=== PATIENT | female | born 1950 | race Caucasian/White ===

== ENCOUNTER → 2023-07-13 09:24 | Outpatient (REF) | payer MEDICARE, OTHER, SELFPAY ==
[2023-07-13 10:19] LABS: Urine Albumin Negative (Neg - Trace); Urine Bilirubin 1+ (Negative); Urine Character Clear (Clear); Urine Color Yellow; Urine Glucose Negative (Negative); Urine Ketone Negative (Negative); Urine Leukocyte 2+ (Negative); Urine Nitrite Negative (Negative); Urine Occult Blood Negative (Negative); Urine Specific Gravity 1.015 (<1.030); Urine Urobilinogen Negative (Neg - 1+)
[2023-07-13 10:28] LABS: Urine Bacteria Few (Negative); Urine Red Blood Cell 0-2 /HPF (0-2)
[2023-07-13 10:50] LABS: ALT (SGPT) 14 U/L (0-35); AST (SGOT) 17 U/L (14-36); Albumin 4.2 g/dl (3.5-5.0); Alkaline Phosphatase 76 U/L (38-126); Blood Urea Nitrogen 13 mg/dl (7-17); Calcium 9.6 mg/dl (8.4-10.2); Carbon Dioxide 24 mmol/L (22-30); Chloride 101 mmol/L (98-107); Glucose 117 mg/dl (70-99); Potassium 4.7 mmol/L (3.5-5.1); Sodium 131 mmol/L (135-145); Total Bilirubin 0.5 mg/dl (0.2-1.3); Total Protein 6.6 g/dl (6.3-8.2); eGFR 53.06
== END ==
LOC: RAD 09:24
PROVIDERS: ATTENDING PHYSICIAN Nurse Practitioner Family
DX: R10.32 Left lower quadrant pain (principal); I10 Essential (primary) hypertension; R10.9 Unspecified abdominal pain; R35.0 Frequency of micturition
CPT/HCPCS: 36415; 74177; 80053; 81003; 81015; 87086; Q9967

== ENCOUNTER → 2023-07-29 10:54 | Outpatient (REF) | payer MEDICARE, OTHER, SELFPAY ==
[2023-07-29 13:16] LABS: Urine Albumin Negative (Neg - Trace); Urine Bilirubin Negative (Negative); Urine Character Clear (Clear); Urine Color Yellow; Urine Glucose Negative (Negative); Urine Ketone Negative (Negative); Urine Leukocyte Negative (Negative); Urine Nitrite Negative (Negative); Urine Occult Blood Negative (Negative); Urine Specific Gravity 1.005 (<1.030); Urine Urobilinogen Negative (Neg - 1+)
== END ==
LOC: REG 10:54
PROVIDERS: ATTENDING PHYSICIAN Nurse Practitioner Family; FAMILY PHYSICIAN Family Medicine
DX: R39.9 Unspecified symptoms and signs involving the genitourinary system (principal)
CPT/HCPCS: 81003; 87086

== ENCOUNTER → 2023-08-15 12:59 | Outpatient (REF) | payer MEDICARE, OTHER, SELFPAY | LOC: PAVMRI 12:59 | PROVIDERS: ATTENDING PHYSICIAN Nurse Practitioner Family; FAMILY PHYSICIAN Family Medicine | DX: K86.2 Cyst of pancreas (principal) | CPT/HCPCS: 74183; A9575 ==

== ENCOUNTER → 2024-03-15 14:31 | Outpatient (REF) | payer MEDICARE, OTHER, SELFPAY | LOC: PAVMRI 14:31 | PROVIDERS: ATTENDING PHYSICIAN Internal Medicine Gastroenterology; FAMILY PHYSICIAN Family Medicine | DX: K86.2 Cyst of pancreas (principal) | CPT/HCPCS: 74183; A9575 ==

== ENCOUNTER 2025-02-20 13:56 | Emergency (ER) | payer MEDICARE, OTHER, SELFPAY ==
[2025-02-20 14:01] VITALS: BP 157/88
[2025-02-20 14:19] LABS: Hematocrit 41.7 % (37.0-47.0); Hemoglobin 14.3 g/dL (12.0-16.0); Mean Corp Hgb Conc. 34.3 g/dL (33.0-37.0); Mean Corpuscular Volume 86.7 fL (81.0-99.0); Nucleated Red Blood Cells % 0 %; Platelet Count 381 10^3/uL (130-400); Red Cell Dist. Width 13.4 % (11.5-14.5)
[2025-02-20 14:32] LABS: ALT (SGPT) 18 U/L (0-35); AST (SGOT) 27 U/L (14-36); Albumin 4.5 g/dl (3.5-5.0); Alkaline Phosphatase 85 U/L (38-126); Blood Urea Nitrogen 23 mg/dl (7-17); Calcium 9.3 mg/dl (8.4-10.2); Carbon Dioxide 30 mmol/L (22-30); Chloride 92 mmol/L (98-107); Glucose 128 mg/dl (70-99); Lipase 73 U/L (23-300); Potassium 3.7 mmol/L (3.5-5.1); Sodium 130 mmol/L (135-145); Total Protein 7.2 g/dl (6.3-8.2); eGFR > 60.00
--- NOTE | 2025-02-20 15:51 | EDRN ---
Katharine Mayen in room w/ pt
--- NOTE | 2025-02-20 16:09 | ED.GENMED ---
History of Present Illness
<Deena Mayen MD, Resident - Last Filed: 02/20/25 20:12>
General
Chief Complaint: Abdominal Symptoms
Source: patient
Exam Limitations: none
Time Seen by Provider: 02/20/25 15:49
Nursing documentation reviewed up to this point in time: agreed with
History of Present Illness
History of Present Illness:
74yo F with a hx of HTN, GERD, recent hiatal hernia repair (~2-3yr prior) who presents with subacute epigastric pain & nausea/vomiting.
Pt reports that for the last 2 days, she's been experiencing substernal/epigastric burning pain with eating and drinking. She has vomited 3-4x at home over the last 2 days and has only been able to tolerate sips of water, which still elicit the
burning pain. Currently rates pain at 7/10. It does not radiate beyond epigastric/substernal area. Vomitus was 'black' color, although she did not eat anything dark. Denies hx of ulcers. Denies frequent NSAID use, only uses occasionally and hasn't
used any in the last 2 days. Tried pepto bismol & tylenol, neither of which helped with pain for >1 hr. She takes famotidine daily for her dx of GERD. Had hiatal hernia repair 2-3 yrs ago. States that this burning pain feels similar to GERD but in a
different location and worse / elicited with small sips of fluid. Did not take temperature at home but endorses chills at home. Denies any sick contacts. Endorses minimal diarrhea, without blood.
Past History
<Deena Mayen MD, Resident - Last Filed: 02/20/25 20:12>
Past History
ED Past Medical History: HTN and Psychiatric (Anxiety)
ED Past Surgical History: Gynecological (Tubal ligation) and Urological (Kidney blockage surgery)
Patient has exhibited threatening behavior?: No
Social History
Tobacco: Non-smoker
Alcohol: Occasional (Rare alcohol use)
Personal:
Living: with family (Daughter)
Employment: Retired
Family History
Family History: Other (Noncontributory)
Review of Systems
<Deena Mayen MD, Resident - Last Filed: 02/20/25 20:12>
Review of Systems
Allergies reviewed?: Yes
All Other Systems: ROS reviewed and negative except as documented in HPI and ROS
Constitutional: Reports chills
EENT: Reports no symptoms
Respiratory: Reports cough
Cardiac: Reports no symptoms
ABD/GI: Reports abdominal pain, nausea, vomiting, diarrhea and pain
: Reports no symptoms
Musculoskeletal: Reports no symptoms
Skin: Reports no symptoms
Neurological: Reports no symptoms
Psychiatric: Reports no symptoms
Phy Exam
<Deena Mayen MD, Resident - Last Filed: 02/20/25 20:12>
General Physical Exam
General Presentation: well appearing
General age: appears stated age
General Skin: warm and dry
General Habitus: normal
General Mental: alert
General Hydration: dry mucous membranes
Cardiovascular Exam
Cardiovascular Exam: regular rate/rhythm, no edema and other (no sternal tenderness to palpation )
Pulmonary Exam
Pulmonary Exam: no respiratory distress
Gastrointestinal Exam
Gastrointestinal Exam: non tender, soft and non distended
Neurological Exam
Neurological Exam: alert
Psychiatric Exam
Psychiatric Exam: normal mood/affect
Course
<Deena Mayen MD, Resident - Last Filed: 02/20/25 20:12>
Orders/Labs/Results
Orders:
Orders
02/20/25 14:03
Electrocardiogram (*1) Urgent
Reason for Study: Abdominal Pain
EKG- Treatment ONCE
02/20/25 14:13
Complete Blood Count/With Diff Urgent
Comprehensive Metabolic Panel Urgent
Lipase Urgent
02/20/25 16:14
0.9% Sodium Chloride 1000 ml [Nss] 1,000 ml IV BOLUS
Pantoprazole [Protonix IV] 40 mg IV NOW STA
02/20/25 16:16
CT Abd/pelvis W Iv Cont Urgent
Comment:
Reason For Exam: substernal/epigastric pain, vomiting
02/20/25 16:17
Ondansetron Orally Disint [Zofran Odt (Orally Disintegrating)] 4 mg PO Q8HPRN PRN
Abnormal Lab Results
02/20/25
14:13
WBC 13.3 H 10^3/uL
(4.8-10.8)
Abs Immat Gran (auto) 0.1 H 10^3/uL
(0-0.05)
Absolute Neuts (auto) 10.7 H 10^3/uL
(1.4-6.5)
Absolute Monos (auto) 1.0 H 10^3/uL
(0.1-0.6)
Neutrophils % 79.9 H %
(42.2-75.2)
Lymphocytes % 11.8 L %
(20.5-51.1)
Sodium 130 L mmol/L
(135-145)
Chloride 92 L mmol/L
(98-107)
BUN 23 H mg/dl
(7-17)
Glucose 128 H mg/dl
(70-99)
02/20/25 14:13
02/20/25 14:13
Vital Signs
Initial and Last Documented VS:
Initial Vital Signs
Temp Pulse Resp BP Pulse Ox
97.6 F 116 19 157/88 98
02/20/25 14:01 02/20/25 14:01 02/20/25 14:01 02/20/25 14:01 02/20/25 14:01
Last Documented Vital Signs
Temp Pulse Resp BP Pulse Ox
97.6 F 90 16 175/87 97
02/20/25 14:01 02/20/25 18:20 02/20/25 18:20 02/20/25 18:20 02/20/25 18:20
<Belle Deng, DO - Last Filed: 02/20/25 20:13>
Orders/Labs/Results
Orders:
Orders
02/20/25 14:03
Electrocardiogram (*1) Urgent
Reason for Study: Abdominal Pain
EKG- Treatment ONCE
02/20/25 14:13
Complete Blood Count/With Diff Urgent
Comprehensive Metabolic Panel Urgent
Lipase Urgent
02/20/25 16:14
0.9% Sodium Chloride 1000 ml [Nss] 1,000 ml IV BOLUS
Pantoprazole [Protonix IV] 40 mg IV NOW STA
02/20/25 16:16
CT Abd/pelvis W Iv Cont Urgent
Comment:
Reason For Exam: substernal/epigastric pain, vomiting
02/20/25 16:17
Ondansetron Orally Disint [Zofran Odt (Orally Disintegrating)] 4 mg PO Q8HPRN PRN
Abnormal Lab Results
02/20/25
14:13
WBC 13.3 H 10^3/uL
(4.8-10.8)
Abs Immat Gran (auto) 0.1 H 10^3/uL
(0-0.05)
Absolute Neuts (auto) 10.7 H 10^3/uL
(1.4-6.5)
Absolute Monos (auto) 1.0 H 10^3/uL
(0.1-0.6)
Neutrophils % 79.9 H %
(42.2-75.2)
Lymphocytes % 11.8 L %
(20.5-51.1)
Sodium 130 L mmol/L
(135-145)
Chloride 92 L mmol/L
(98-107)
BUN 23 H mg/dl
(7-17)
Glucose 128 H mg/dl
(70-99)
02/20/25 14:13
02/20/25 14:13
Vital Signs
Initial and Last Documented VS:
Initial Vital Signs
Temp Pulse Resp BP Pulse Ox
97.6 F 116 19 157/88 98
02/20/25 14:01 02/20/25 14:01 02/20/25 14:01 02/20/25 14:01 02/20/25 14:01
Last Documented Vital Signs
Temp Pulse Resp BP Pulse Ox
97.6 F 90 16 175/87 97
02/20/25 14:01 02/20/25 18:20 02/20/25 18:20 02/20/25 18:20 02/20/25 18:20
<Deena Mayen MD, Resident - Last Filed: 02/20/25 20:12>
MDM/Problems Addressed
Differential Diagnosis Includes:
DDx: esophagitis vs. gastric/peptic ulcer
Less likely:
Infectious gastritis (afebrile, no sick contacts, no abnormal food preceding, WBC mildly elevated)
Hiatal hernia repair complication
ACS (r/o with EKG, quality of pain, incidence w PO intake, vomiting)
MDM/Problems Addressed:
Plan:
1L NSS
40mg IV pantoprazole
CT a/p w IV contrast
Zofran PRN
CBC/CMP
EKG
Chronic conditions affecting care: Other (GERD)
Acute Exacerbation and/or Progression of Chronic Illness:
Pt with underlying GERD, takes famotidine at baseline
<Deena Mayen MD, Resident - Last Filed: 02/20/25 20:12>
*Pulse Oximetry
SaO2: 98
Oxygen Mode of Delivery: Room air
Patient hypoxic: no
*EKG
Interpreted by ED Provider?: Yes
EKG Intrepretation Date: 02/20/25
Interpretation: normal
Comparison EKG: no comparison EKG present
Rate: normal
Rhythm: sinus
[place]: normal axis
Interval: long QT (476 )
QRS Pattern: normal QRS
Ischemia: no ischemia
*Critical Care Note
Total Time (30-74mins, 75-104mins- exclusive of procedures): Not Applicable
Data Reviewed
Review of Other/Old Records Reveals: Labs and Radiology Studies
<Belle Vilchis DO - Last Filed: 02/20/25 20:13>
*Pulse Oximetry
Patient hypoxic: no
*Critical Care Note
Total Time (30-74mins, 75-104mins- exclusive of procedures): Not Applicable
<Deena Mayen MD, Resident - Last Filed: 02/20/25 20:12>
Update Note
Update Note:
CT a/p without acute abnormality; new gallstone & known hiatal hernia noted.
Pt reports feeling better holistically s/p NSS, but still with some nausea. Trialed a sip of water, she said it felt good to drink but still caused the burning sensation.
Pt clarified that she stopped taking the famotidine a few months ago because she had been feeling fine.
Feels comfortable going home.
ED Attending Note
<Deena Mayen MD, Resident - Last Filed: 02/20/25 20:12>
-
Portions of this chart may have been created with voice recognition software.� Occasional wrong word or��sound alike� substitutions may have occurred due to the inherent limitations of voice recognition software.
<Belle Vilchis DO - Last Filed: 02/20/25 20:13>
ED Attending Note
Patient seen and examined by attending physician: Yes
I performed the substantive portion of visit, reviewed & personally made and approve the management plan that is documented in note by myself or ANN.: Yes
I performed a history and physical exam of patient and discussed management with resident, I reviewed resident's note and agree with documented findings and plan of care.: Yes
ED Attending Note:
74-year-old female with prior history of hiatal hernia status post repair in 2021 presenting to the emergency department with persistent nausea and vomiting. Patient reports symptoms started 2 days ago. Has been unable to tolerate anything by
mouth since yesterday. Notes that the vomit has also been dark in color. Reports tubal ligation in the past, otherwise no abdominal surgeries. Stools have been soft, however denies diarrhea or constipation. Tried Tylenol for pain without
significant relief. She does not take any NSAIDs, denies any history of stomach ulcer. Denies any associated chest pain or difficulty breathing. Notes chills without fever. Vital signs arrival significant for mild tachycardia.
On exam patient is resting comfortably, no acute distress. Benign cardiac and pulmonary exam. On abdominal exam, minimal tenderness to epigastric region. No rebound or guarding. Differential considerations include GERD versus gastritis versus
pancreatitis versus hiatal hernia versus bowel obstruction versus peptic ulcer disease. Currently hemodynamically stable. Labs obtained prior to my assessment, normal hemoglobin. Patient denies any bright red blood per vomitus. Will treat
patient with IV fluids and Zofran, as well as Pepcid. Will also obtain CT imaging of the abdomen and pelvis to evaluate for any acute process
20:10 - Patient CT without acute process. Patient does note some interval improvement after pantoprazole. No additional emesis in the emergency department. Continue to suspect peptic ulcer disease versus gastritis. Patient feels well enough to
go home, feel reasonable given hemodynamic stability. Patient had stopped taking her Pepcid a few months ago. Advised that she restart the medication and follow-up with her GI doctor for possible repeat endoscopy. Return precautions discussed,
diet modification discussed, patient verbalized understanding
Discharge Plan
Departure
Patient Disposition: Home (Routine Discharge)
Date of Disposition: 02/20/25
Time of Disposition: 20:06
Patient with high blood pressure during this ER visit?: Yes
Condition: Fair
Covid-19: Not Applicable
Discharge Problem:
Gastritis
Instructions: Esophagitis, Acid reflux and GERD in adults
Prescriptions:
New
famotidine 20 mg tablet
20 mg PO DAILY Qty: 90 0RF
No Action
sertraline 25 MG tablet
25 mg PO DAILY
lisinopril 20 MG tablet
20 mg PO DAILY
cholecalciferol (vitamin D3) 1,000 UNITS tablet
1,000 units PO DAILY
acetaminophen 325 MG tablet
650 mg PO Q4HPRN PRN (Reason: mild pain) Qty: 1 0RF
alendronate [Fosamax] 70 mg Tablet
70 mg PO MO
famotidine [Pepcid] 20 mg Tablet
20 mg PO DAILYPRN PRN (Reason: gerd)
bismuth subsalicylate [Pepto-Bismol] 262 mg/15 mL Suspension
262 mg PO DAILYPRN PRN (Reason: stomach issuses)
Referrals:
Franklin Todd MD [Family Provider, Family Practice]
Interventions
Interventions:
*Risk Screen - Suicide Last Done: 02/20/25 16:40
*General Assessment Last Done: 02/20/25 14:01
*Neglect/Abuse Screening Last Done: 02/20/25 16:40
*ED- Fall Risk Assessment Last Done: 02/20/25 16:40
*ED COVID-19 Vaccine History Last Done: 02/20/25 16:40
*ED Influenza Vaccine History Last Done: 02/20/25 16:40
VL-Utjner-Ewceoopkqq Assessment Last Done: 02/20/25 16:40
Discharge Date and Time
Print Language: LITHUANIAN
--- NOTE | 2025-02-20 16:10 | EDRN ---
Dr. Vilchis in to see pt.
[2025-02-20 16:35] VITALS: BP 165/85
[2025-02-20] MEDS: NSS 1000 IV (16:39)
[2025-02-20 16:40] VITALS: BMI 24.7
[2025-02-20] MEDS: PROTONIX IV 40 MG IV (16:40)
[2025-02-20 17:00] VITALS: BP 161/99
[2025-02-20 18:20] VITALS: BP 175/87
== END 2025-02-20 20:38 | disposition home or self-care (01) ==
LOC: EMR 13:56
PROVIDERS: Student in an Organized Health Care Education/Training Program; EMERGENCY PHYSICIAN Student in an Organized Health Care Education/Training Program; FAMILY PHYSICIAN Family Medicine
DX: K29.70 Gastritis, unspecified, without bleeding (principal); K80.20 Calculus of gallbladder without cholecystitis without obstruction; I10 Essential (primary) hypertension; K21.9 Gastro-esophageal reflux disease without esophagitis; F41.9 Anxiety disorder, unspecified; T47.0X6A Underdosing of histamine H2-receptor blockers, initial encounter; Z91.128 Patient's intentional underdosing of medication regimen for other reason
CPT/HCPCS: 99284; 96374; 96361 ×2; 74177; 80053; 83690; 85025; 93005; Q9967